=== PATIENT | female | born 1975 | race Caucasian/White ===

== ENCOUNTER 2016-08-29 11:07 | Emergency (ER) | payer OTHER ==
[~2016-08-29] VITALS: Ht 167.6 cm; Wt 70.0 kg
[~2016-08-29 11:07] MED LIST: CYCL-36 PO; NAPR-576 PO
[2016-08-29 11:08] VITALS: BP 117/70; PULSE 78; RESP 19; TEMP 98.2; O2SAT 98
[2016-08-29] MEDS ORDERED: SODIUM CHLOR 0.9% 1000 ML INJ 1,000 ML IV ONE (11:18)
--- NOTE | 2016-08-29 11:25 | PD ---
HPI Chief Complaint: Cold / Flu Symptoms Time Seen by Provider: 11:15 Travel History International Travel<30 days: No Contact w/Intl Traveler<30days: No Traveled to known affect area: No History of Present Illness HPI 40-year-old female with half a pack a day smoking history presents for evaluation of cough, congestion. Symptoms started 3 days ago. The cough is occasionally productive with yellow sputum. The cough is worse at night. She endorses some dizziness, particularly when she coughs. She describes this as a lightheadedness sensation. She has tried several [id number] cough and cold medications with no symptom relief which prompted evaluation. She does note that her son who has a history of asthma was seen here 5 days ago with similar symptoms, diagnosed with bronchitis. She denies any recent travel, abdominal pain, nausea or vomiting, dysuria, flank pain, headache, blurred vision. She has no other complaints at this time. PFS Past Medical History Narrative Medical History of chronic back pain with spinal stimulator implant. ?: Not LMP: 08/11/16 Social History Tobacco Use: Yes Allergies-Medications (Allergen,Severity, Reaction): Coded Allergies: No Known Allergies (Unverified , 08/29/16) Reported Meds & Prescriptions Reported Meds & Active Scripts Active Prednisone 20 Mg Tab 20 Mg PO BID 5 Days Ventolin Hfa 18 GM Inh (Albuterol Sulfate) 90 Mcg/Act Aer 2 Puff INH Q4-6H PRN Tuzistra Xr Liq 12 HR (Codeine-Chlorpheniramine ER Liq 12 HR) 14.7-2.8 Mg/5 Ml Susp 10 Ml PO Q12H 5 Days Naproxen 500 Mg Tab 500 Mg PO Q12HR 10 Days Flexeril (Cyclobenzaprine HCl) 10 Mg Tab 10 Mg PO Q8HR PRN Review of Systems Except as stated in HPI: all other systems reviewed are Neg Physical Exam Narrative GENERAL: This is a well-developed well-nourished female who is coughing during much of the examination. Her vital signs have been reviewed. SKIN: Warm and dry. HEAD: Atraumatic. Normocephalic. EYES: Pupils equal and round. No scleral icterus. No injection or drainage. ENT: No nasal bleeding or discharge. Mucous membranes pink and moist. NECK: Trachea midline. No JVD. No lymphadenopathy. Neck supple full range of motion. CARDIOVASCULAR: Regular rate and rhythm. No murmur appreciated. RESPIRATORY: No accessory muscle use. Mildly coarse breath sounds bilaterally. GASTROINTESTINAL: Abdomen soft, non-tender, nondistended. Hepatic and splenic margins not palpable. MUSCULOSKELETAL: No obvious deformities. No edema. NEUROLOGICAL: Awake and alert. No obvious cranial nerve deficits. Motor grossly within normal limits. Normal speech. Normal finger to nose. Data Data Last Documented VS Vital Signs Date Time Temp Pulse Resp B/P Pulse Ox O2 Delivery O2 Flow Rate FiO2 08/29/16 11:08 98.2 78 19 117/70 98 Orders Electrocardiogram (08/29/16 11:18) Basic Metabolic Panel (Bmp) (08/29/16 11:18) Ed Urine Pregnancytest Poc (08/29/16 11:18) Complete Blood Count With Diff (08/29/16 11:18) Magnesium (Mg) (08/29/16 11:18) Chest, Pa & Lat (08/29/16 11:18) Sodium Chlor 0.9% 1000 Ml Inj (Ns 1000 M (08/29/16 11:18) Influenzae A/B Antigen (08/29/16 11:18) Albuterol-Ipratropium Neb (Duoneb Neb) (08/29/16 11:30) Methylprednisolone So Succ Inj (Solumedr (08/29/16 11:30) Benzonatate (Tessalon) (08/29/16 11:30) Labs Laboratory Tests Test 08/29/16 11:40 White Blood Count 7.8 TH/MM3 Red Blood Count 4.46 MIL/MM3 Hemoglobin 14.3 GM/DL Hematocrit 41.3 % Mean Corpuscular Volume 92.7 FL Mean Corpuscular Hemoglobin 32.0 PG Mean Corpuscular Hemoglobin 34.6 % Concent Red Cell Distribution Width 13.5 % Platelet Count 211 TH/MM3 Mean Platelet Volume 8.4 FL Neutrophils (%) (Auto) 69.3 % Lymphocytes (%) (Auto) 19.9 % Monocytes (%) (Auto) 8.2 % Eosinophils (%) (Auto) 2.1 % Basophils (%) (Auto) 0.5 % Neutrophils # (Auto) 5.4 TH/MM3 Lymphocytes # (Auto) 1.5 TH/MM3 Monocytes # (Auto) 0.6 TH/MM3 Eosinophils # (Auto) 0.2 TH/MM3 Basophils # (Auto) 0.0 TH/MM3 CBC Comment DIFF FINAL Differential Comment Sodium Level 140 MEQ/L Potassium Level 3.9 MEQ/L Chloride Level 108 MEQ/L Carbon Dioxide Level 24.7 MEQ/L Anion Gap 7 MEQ/L Blood Urea Nitrogen 9 MG/DL Creatinine 0.70 MG/DL Estimat Glomerular Filtration 93 ML/MIN Rate Random Glucose 82 MG/DL Calcium Level 8.8 MG/DL Magnesium Level 2.1 MG/DL MDM Medical Decision Making Medical Screen Exam Complete: Yes Emergency Medical Condition: Yes Medical Record Reviewed: Yes Interpretation(s) EKG NSR CBC, BMP unremarkable Chest x-ray normal Differential Diagnosis Bronchitis, reactive airway disease, pneumonia, influenza, COPD, sinusitis with postnasal drip Narrative Course 40-year-old female smoker with 3 days of cough, worse in the night. Her son is had similar symptoms for 5 days. She does have some dizziness associated with the coughing. On examination she has coarse breath sounds. She has a grossly nonfocal neurologic examination. Plan is for basic lab, EKG, chest x-ray. She will be given DuoNeb, Solu-Medrol, Tessalon here for symptom treatment. The patient's laboratory imaging studies have been reviewed and found to be unremarkable. The patient feels improved after medication administration. She' ll be discharged with a short course of codeine-based cough suppressant medication as well as an albuterol inhaler and a short course of prednisone. Procedures EKG Prior to Arrival: Yes Diagnosis Primary Impression: Bronchitis Additional Instructions: Medication as prescribed. Consider tobacco cessation. Follow-up with primary care physician as needed. Return for any acutely no worsening symptoms. Med/Other Pt SpecificInfo: Prescription(s) given Scripts Prednisone 20 Mg Tab20 Mg PO BID 5 Days Ref 0 Prov:Darling Baron MD 08/29/16 Albuterol 18 GM Inh (Ventolin Hfa 18 GM Inh)90 Mcg/Act Aer2 Puff INH Q4-6H PRN ( SHORTNESS OF BREATH) #1 INHALER Ref 0 Prov:Darling Baron MD 08/29/16 Codeine-Chlorpheniramine ER Liq 12 HR (Tuzistra Xr Liq 12 HR)14.7-2.8 Mg/5 Ml Susp10 Ml PO Q12H 5 Days Ref 0 Prov:Darling Baron MD 08/29/16 Disposition: 01 DISCHARGE HOME Condition: Stable Kenneth Mullen August 29, 2016 11:25
[2016-08-29] MEDS ORDERED: BENZONATATE 100 MG CAP PO ONE (11:30)
[2016-08-29] MEDS ORDERED: methylPREDNISolone SOD SUCC 125 MG/2 ML VIAL IV PUSH ONE (11:30)
[2016-08-29] MEDS ORDERED: RESP: ALBUTEROL 2.5 MG/IPRATROPIUM 0.5 MG NEB (SCH) INH ONE (11:30)
[2016-08-29 11:55] LABS: AUTOMATED NEUTROPHIL # 5.4 TH/MM3 (1.8-7.7); BASOPHIL % 0.5 % (0.0-2.0); EOSINOPHIL # 0.2 TH/MM3 (0-0.4); EOSINOPHIL % 2.1 % (0.0-4.0); HEMATOCRIT 41.3 % (35.0-46.0); HEMO FLAGS DIFF FINAL; LYMPH % 19.9 % (9.0-44.0); LYMPHOCYTE # 1.5 TH/MM3 (1.0-4.8); MEAN CELL VOLUME 92.7 FL (80.0-100.0); MEAN CORPUSCULAR HGB CONC 34.6 % (32.0-36.0); MONO % 8.2 % (0.0-8.0); NEUT % 69.3 % (16.0-70.0); PLATELET COUNT 211 TH/MM3 (150-450); RED BLOOD COUNT 4.46 MIL/MM3 (4.00-5.30); RED CELL DISTRIBUTION WIDTH 13.5 % (11.6-17.2); WHITE BLOOD COUNT 7.8 TH/MM3 (4.0-11.0)
[2016-08-29] MEDS ORDERED: CODE1SUS PO (12:14)
[2016-08-29 12:15] LABS: BICARBONATE 24.7 MEQ/L (21.0-32.0); MAGNESIUM 2.1 MG/DL (1.5-2.5); POTASSIUM 3.9 MEQ/L (3.5-5.1)
[2016-08-29] MEDS ORDERED: PRED20 PO (12:30)
[2016-08-29] MEDS ORDERED: VENTAER INH (12:30)
--- NOTE | 2016-08-29 13:36 | RADRPT ---
EXAM DATE/TIME: 08/29/2016 12:15 [facility] COMPARISON: No previous studies available for comparison. INDICATIONS : Cough for 3 days. MEDICAL HISTORY : None. SURGICAL HISTORY : Spinal cord stimulator. ENCOUNTER: Initial ACUITY: 3 days PAIN SCORE: 0/10 LOCATION: Bilateral chest FINDINGS: PA and lateral views of the chest demonstrate the lungs to be symmetrically aerated without evidence of mass, infiltrate or effusion. The cardiomediastinal contours are unremarkable. Osseous structure s are intact. Spinal stimulator leads with tips at the T7/T8 level noted. CONCLUSION: No evidence of acute cardiopulmonary disease. Kristian Osorio MD on August 29, 2016 at 13:33 Board Certified Radiologist. This report was verified electronically.
[2016-08-29 14:25] VITALS: BP 134/65
--- NOTE | 2016-08-30 15:48 | EKG ---
Date Performed: 08/29/2016 Time Performed: 11:57:49 PTAGE: 40 years EKG: Sinus rhythm POSSIBLE LEFT ATRIAL ENLARGEMENT POSSIBLE RIGHT VENTRICULAR CONDUCTION DELAY BORDERLINE ECG NO PREVIOUS TRACING DOCTOR: Torsten Moay Interpretating Date/Time 08/30/2016 15:40:13
== END 2016-08-29 14:33 | disposition home or self-care (01) ==
LOC: NEPD 11:07
DX: J40 Bronchitis, not specified as acute or chronic (principal); F17.210 Nicotine dependence, cigarettes, uncomplicated; R94.31 Abnormal electrocardiogram [ECG] [EKG]
CPT/HCPCS: 71020; 80048; 83735; 84703; 85025; 87804; 93005; 94664; 96374; 99284; J2930; J7030

== ENCOUNTER 2017-05-27 14:39 | Emergency (ER) | payer OTHER ==
[~2017-05-27] VITALS: Ht 167.6 cm; Wt 78.0 kg
[~2017-05-27 14:39] MED LIST changes: +CODE1SUS PO; +PRED20 PO; +VENTAER INH
[2017-05-27 14:58] VITALS: BP 122/65; PULSE 65; RESP 19; TEMP 97.8; O2SAT 94
--- NOTE | 2017-05-27 14:58 | PD ---
HPI Chief Complaint: Fall Time Seen by Provider: 14:53 Travel History International Travel<30 days: No Contact w/Intl Traveler<30days: No Traveled to known affect area: No History of Present Illness HPI 41-year-old female complains of neck pain upper and low back pain. Patient fell on her back on the stairs this afternoon. Patient denies loss of consciousness. Patient denies any headache. Patient, and sharp pain localized to neck upper back and low back area. Patient denies any chest pain or shortness of breath. Patient denies abdominal pain. Patient complained of right upper back pain also. Patient denies any focal weakness or numbness of extremity. Patient status post low back injury in the past. PFSH Past Medical History ?: Not LMP: 05/18/2017 Social History Alcohol Use: Yes Tobacco Use: Yes Allergies-Medications (Allergen,Severity, Reaction): Coded Allergies: No Known Allergies (Unverified Adverse Reaction, Unknown, 05/27/17) Reported Meds & Prescriptions Reported Meds & Active Scripts Active No Active Prescriptions or Reported Medications Review of Systems General / Constitutional: No: Fever Eyes: No: Visual changes HENT: No: Headaches Cardiovascular: No: Chest Pain or Discomfort Respiratory: No: Shortness of Breath Gastrointestinal: No: Abdominal Pain Genitourinary: No: Dysuria Musculoskeletal: No: Pain Skin: No Rash Neurologic: No: Weakness Psychiatric: No: Depression Endocrine: No: Polydipsia Hematologic/Lymphatic: No: Easy Bruising Physical Exam Narrative GENERAL: Well-nourished, well-developed patient. SKIN: Focused skin assessment warm/dry. HEAD: Normocephalic. EYES: No scleral icterus. No injection or drainage. NECK: Supple, trachea midline. No JVD or lymphadenopathy. C-collar in place. Patient has ordered tenderness on palpation paraspinal areas cervical spine. No midline tenderness. CARDIOVASCULAR: Regular rate and rhythm without murmurs, gallops, or rubs. RESPIRATORY: Breath sounds equal bilaterally. No accessory muscle use. GASTROINTESTINAL: Abdomen soft, non-tender, nondistended. MUSCULOSKELETAL: No cyanosis, or edema. BACK: Patient has mild tenderness on palpation thoracic spine moderate tenderness on palpation lumbar spine area, without obvious deformity. No CVA tenderness. Negative straight leg raising. Neurologic exam normal. Data Data Last Documented VS Vital Signs Date Time Temp Pulse Resp B/P (MAP) Pulse Ox O2 Delivery O2 Flow Rate FiO2 05/27/17 14:58 97.8 65 19 122/65 (84) 94 Room Air Orders Orders Chest, Single Ap (05/27/17 14:54) Pelvis, Ap Only (Routine) (05/27/17 14:54) Ct Cerv Spine W/O Contrast (05/27/17 14:54) Ct Thor Spine W/O Contrast (05/27/17 14:54) Ct Lumb Spine W/O Contrast (05/27/17 14:54) Acetamin-Hydrocod 325-5 Mg ([place] 5-325 (05/27/17 16:30) MDM Medical Decision Making Medical Screen Exam Complete: Yes Emergency Medical Condition: Yes Interpretation(s) Last Impressions Lumbar Spine CT 05/27/171453 Signed Impressions: Service Date/Time: Saturday, May 27, 2017 15:29 - CONCLUSION: Negative examination Brian Rose MD Chest X-Ray 05/27/[id number] Signed Impressions: Service Date/Time: Saturday, May 27, 2017 15:39 - CONCLUSION: No acute disease. Brian Rose MD Cervical Spine CT 05/27/[id number] Signed Impressions: Service Date/Time: Saturday, May 27, 2017 15:29 - CONCLUSION: 1. No compression fracture or spondylolisthesis. 2. Protrusions at C5-6 and C6-7 levels as described above. Peter Welch MD Differential Diagnosis Differential diagnosis including contusion, fracture, dislocation. Narrative Course 41-year-old female with neck, back, injury. Status post fall. Diagnosis Primary Impression: Back contusion Qualified Codes: S20.229A - Contusion of unspecified back wall of thorax, initial encounter Additional Impression: Cervical strain Qualified Codes: S16.1XXA - Strain of muscle, fascia and tendon at neck level , initial encounter Patient Instructions: General Instructions Med/Other Pt SpecificInfo: Prescription(s) given Scripts Methocarbamol (Robaxin) 750 Mg Tab 750 MG PO QID for Muscle Spasm, #40 TAB 0 Refills Prov: Leonard Mccarthy MD 05/27/17 Meloxicam (Mobic) 15 Mg Tab 15 MG PO DAILY for Pain, #20 TAB 0 Refills Prov: Leonard Mccarthy MD 05/27/17 Disposition: 01 DISCHARGE HOME Condition: Stable Fabio,Hung MD May 27, 2017 14:58
--- NOTE | 2017-05-27 15:49 | RADRPT ---
EXAM DATE/TIME: 05/27/2017 15:29 [facility] COMPARISON: No previous studies available for comparison. INDICATIONS : Neck pain due to fall. RADIATION DOSE: 27.42 CTDIvol (mGy) MEDICAL HISTORY : None SURGICAL HISTORY : Tubal ligation. Spinal cord stimulator. ENCOUNTER: Initial ACUITY: 1 day PAIN SCALE: 10/10 LOCATION: Right neck region. TECHNIQUE: Volumetric scanning of the cervical spine was performed. Multiplanar reconstructions in the sagittal, coronal and oblique axial planes were performed. Using automated exposure control and adjustment o f the mA and/or kV according to patient size, radiation dose was kept as low as reasonably achievable to obtain optimal diagnostic quality images. DICOM format image data is available electronically f or review and comparison. FINDINGS: VERTEBRAE: Normal vertebral body height. Degenerative changes at C5-6 and C6-7 levels. ALIGNMENT: No evidence of subluxation. C2-C3: The bony spinal canal is normal in size. No evidence of disc bulge or herniation. The neural forami na are bilaterally patent. C3-C4: The bony spinal canal is normal in size. No evidence of disc bulge or herniation. The neural forami na are bilaterally patent. C4-C5: The bony spinal canal is normal in size. No evidence of disc bulge or herniation. The neural forami na are bilaterally patent. C5-C6: Moderate right-sided protrusion abuts the ventral thecal sac. Mild canal stenosis. Severe narrowing t he right neural foramen. Left neural foramen is patent. C6-C7: Mild broad-based protrusion abuts ventral thecal sac. No canal stenosis. Mild to moderate bilateral n eural foraminal narrowing. C7-T1: The bony spinal canal is normal in size. No evidence of disc bulge or herniation. The neural forami na are bilaterally patent. CONCLUSION: 1. No compression fracture or spondylolisthesis. 2. Protrusions at C5-6 and C6-7 levels as described above. Peter Welch MD on May 27, 2017 at 15:43 Board Certified Radiologist. This report was verified electronically.
--- NOTE | 2017-05-27 15:57 | RADRPT ---
EXAM DATE/TIME: 05/27/2017 15:39 [facility] COMPARISON: CT THORACIC SPINE W/O CONTRAST, May 27, 2017, 15:33. INDICATIONS : Fall, pain in chest. MEDICAL HISTORY : None. SURGICAL HISTORY : None. ENCOUNTER: Initial ACUITY: 1 day PAIN SCORE: 5/10 LOCATION: Bilateral chest FINDINGS: A single view of the chest demonstrates the lungs to be symmetrically aerated without evidence of mas s, infiltrate or effusion. The cardiomediastinal contours are unremarkable. Osseous structures are intact. Lower thoracic spine intracanicular wires and/or stimulating device is noted in place. CONCLUSION: No acute disease. Brian Rose MD on May 27, 2017 at 15:53 Board Certified Radiologist. This report was verified electronically.
--- NOTE | 2017-05-27 16:09 | RADRPT ---
EXAM DATE/TIME: 05/27/2017 15:29 [facility] COMPARISON: No previous studies available for comparison. INDICATIONS : Low back pain due to fall. RADIATION DOSE: 25.13 CTDIvol (mGy) ; Combined studies - Thoracic Spine/Lumbar Spine MEDICAL HISTORY : None SURGICAL HISTORY : Tubal ligation. Spinal cord stimulator. ENCOUNTER: Initial ACUITY: 1 day PAIN SCALE: 10/10 LOCATION: Right low back region. TECHNIQUE: Volumetric scanning of the lumbar spine was performed. Multiplanar reconstructions in the sagittal, coronal and oblique axial planes were performed. Using automated exposure control and adjustment of the mA and/or kV according to patient size, radiation dose was kept as low as reasonab ly achievable to obtain optimal diagnostic quality images. DICOM format image data is available francesco ctronically for review and comparison. FINDINGS: VERTEBRAE: Normal vertebral body height. ALIGNMENT: No evidence of subluxation. T12-L1: The thecal sac has a normal diameter. No evidence of disc bulge or protrusion. The neural foramina are patent bilaterally. L1-L2: The thecal sac has a normal diameter. No evidence of disc bulge or protrusion. The neural foramina are patent bilaterally. L2-L3: The thecal sac has a normal diameter. No evidence of disc bulge or protrusion. The neural foramina are patent bilaterally. L3-L4: The thecal sac has a normal diameter. No evidence of disc bulge or protrusion. The neural foramina are patent bilaterally. L4-L5: The thecal sac has a normal diameter. No evidence of disc bulge or protrusion. The neural foramina are patent bilaterally. L5-S1: The thecal sac has a normal diameter. No evidence of disc bulge or protrusion. The neural foramina are patent bilaterally. CONCLUSION: Negative examination Brian Rose MD on May 27, 2017 at 16:01 Board Certified Radiologist. This report was verified electronically.
--- NOTE | 2017-05-27 16:17 | RADRPT ---
EXAM DATE/TIME: 05/27/2017 15:33 [facility] COMPARISON: No previous studies available for comparison. INDICATIONS : Mid back pain due to fall. RADIATION DOSE: 25.13 CTDIvol (mGy) ; Combined studies - Thoracic Spine/Lumbar Spine MEDICAL HISTORY : None SURGICAL HISTORY : Tubal ligation. Spinal cord stimulator. ENCOUNTER: Initial ACUITY: 1 day PAIN SCALE: 10/10 LOCATION: Right mid back region. TECHNIQUE: Volumetric scanning of the thoracic spine was performed. Multiplanar reconstructions in the sagittal , coronal and oblique axial planes were performed. Using automated exposure control and adjustment o f the mA and/or kV according to patient size, radiation dose was kept as low as reasonably achievable to obtain optimal diagnostic quality images. DICOM format image data is available electronically f or review and comparison. FINDINGS: The vertebral bodies of the thoracic spine are in normal alignment without evidence of subluxation. Vertebral body height is maintained. No fractures are seen. Intracanicular wires and 2 at T9-10 post eriorly and a stent with the metallic markers posteriorly within the canal at the level of T7-T9. T1-T2: Normal. T2-T3: The thecal sac has a normal diameter. No evidence of disc bulge or protrusion. T3-T4: The thecal sac has a normal diameter. No evidence of disc bulge or protrusion. T4-T5: The thecal sac has a normal diameter. No evidence of disc bulge or protrusion. T5-T6: The thecal sac has a normal diameter. No evidence of disc bulge or protrusion. T6-T7: The thecal sac has a normal diameter. No evidence of disc bulge or protrusion. T7-T8: The thecal sac has a normal diameter. No evidence of disc bulge or protrusion. T8-T9: The thecal sac has a normal diameter. No evidence of disc bulge or protrusion. T9-T10: The thecal sac has a normal diameter. No evidence of disc bulge or protrusion. T10-T11: The thecal sac has a normal diameter. No evidence of disc bulge or protrusion. T11-T12: The thecal sac has a normal diameter. No evidence of disc bulge or protrusion. T12-L1: The thecal sac has a normal diameter. No evidence of disc bulge or protrusion. CONCLUSION: No acute bony abnormality. Intracanicular wires and stimulating device as descr ibed above Brian Rose MD on May 27, 2017 at 16:09 Board Certified Radiologist. This report was verified electronically.
[2017-05-27] MEDS ORDERED: ROBA750T PO (16:23)
[2017-05-27] MEDS ORDERED: MOBI15TA PO (16:23)
--- NOTE | 2017-05-27 16:27 | RADRPT ---
EXAM DATE/TIME: 05/27/2017 15:41 [facility] COMPARISON: CT LUMBAR SPINE W/O CONTRAST, May 27, 2017, 15:29. INDICATIONS : Fall pain in pelvis bilaterally. MEDICAL HISTORY : None. SURGICAL HISTORY : Spinal cord stimulator. ENCOUNTER: Subsequent ACUITY: 1 day PAIN SCORE: 7/10 LOCATION: Bilateral pelvis FINDINGS: There is a symmetrical prominence of the issue him of the inferior pubic rami bilaterally which may b e normal growth pattern however fractures overlapping cannot be excluded. Additionally there is a off set of the cortex of the junction of the left superior pubic ramus with the acetabulum of indetermina te age. Clinical correlation recommended. Further evaluation with plain film radiograph oblique views or CT scan to be warranted CONCLUSION: Abnormalities described above indeterminate age and significance. Asymmetry in addition bilateral inf erior pubic rami which could represent symmetrical overlapping fractures. Additionally there is defor mity junction left superior pubic ramus with the acetabulum of indeterminate age. Further evaluation recommended with either plain film radiographically or CT scan Brian Rose MD on May 27, 2017 at 16:22 Board Certified Radiologist. This report was verified electronically.
[2017-05-27] MEDS ORDERED: ACETAMINOPHEN/HYDROcodone 325 MG/5 MG TAB PO ONE (16:30)
== END 2017-05-27 16:57 | disposition home or self-care (01) ==
LOC: NEPD 14:39
DX: S20.229A Contusion of unspecified back wall of thorax, initial encounter (principal); S16.1XXA Strain of muscle, fascia and tendon at neck level, initial encounter; W10.9XXA Fall (on) (from) unspecified stairs and steps, initial encounter; Z72.0 Tobacco use
CPT/HCPCS: 71045; 72125; 72128; 72131; 72170

== ENCOUNTER 2017-07-21 13:07 | Emergency (ER) | payer OTHER ==
[~2017-07-21 13:07] MED LIST changes: -CODE1SUS PO; -CYCL-36 PO; +MOBI15TA PO; -NAPR-576 PO; -PRED20 PO; +ROBA750T PO; -VENTAER INH
[2017-07-21 13:20] VITALS: BP 121/69; PULSE 75; RESP 18; TEMP 98.3; O2SAT 98
[2017-07-21] MEDS ORDERED: MORPHINE SULFATE 4 MG/ML INJ IM ONE (14:15)
[2017-07-21] MEDS ORDERED: ORPHENADRINE INJ 60 MG/2 ML AMP IM ONE (14:15)
--- NOTE | 2017-07-21 14:22 | PD ---
HPI Chief Complaint: Back/ Neck Pain or Injury Time Seen by Provider: 13:46 Travel History International Travel<30 days: No Contact w/Intl Traveler<30days: No Traveled to known affect area: No History of Present Illness HPI 41-year-old female with history of chronic low back pain presents to the emergency room for evaluation of the same. Patient states she has constant, chronic low back pain after falling 40 feet 10 years ago. She had a stimulator placed several years ago but it has not been functioning for a few years. She was seeing a primary care physician and given a referral to a pain management doctor but the referral never went through because the primary care physician was taken off of her insurance plan. Patient states she can typically manage her pain with rest, using wheelchair or walker, and taking [id number] medications. This morning her right leg gave out while walking and she had to catch herself on a chair. The twisting motion exacerbated her pain. Pain is localized to the low back with radiation down the leg. Worse with certain range of motion or sitting for a long period of time. Nothing improves symptoms. Patient denies history of IV drug use. Denies saddle anesthesia, loss of bowel or bladder control, lower extremity paresthesias. 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 PFSH Past Medical History Musculoskeletal: Yes (spinal injury) Tetanus Vaccination: < 5 Years ?: Not Tubal Ligation: Yes Past Surgical History Body Medical Devices: spinal cord stimulator, medtr[employer] Other Surgery: Yes (pain stimulator ) Social History Alcohol Use: Yes (rarely) Tobacco Use: Yes (1/2 ppd) Substance Use: No Allergies-Medications (Allergen,Severity, Reaction): Coded Allergies: No Known Allergies (Unverified Adverse Reaction, Unknown, 07/21/17) Reported Meds & Prescriptions Reported Meds & Active Scripts Active Review of Systems Except as stated in HPI: all other systems reviewed are Neg Physical Exam Narrative GENERAL: Well-nourished, well-developed female no acute distress. Afebrile. Ambulatory. SKIN: Focused skin assessment warm/dry. HEAD: Normocephalic. EYES: No scleral icterus. No injection or drainage. NECK: Supple, trachea midline. No JVD or lymphadenopathy. CARDIOVASCULAR: Regular rate and rhythm without murmurs, gallops, or rubs. RESPIRATORY: Breath sounds equal bilaterally. No accessory muscle use. BACK: No obvious deformity. No CVA tenderness. 2+ patellar reflexes bilaterally and right Achilles reflex. 1+ Achilles reflexes on the left. Extreme tenderness to palpation of very light palpation of the low back. Positive straight leg raise bilaterally. Data Data Last Documented VS Vital Signs Date Time Temp Pulse Resp B/P (MAP) Pulse Ox O2 Delivery O2 Flow Rate FiO2 07/21/17 13:20 98.3 75 18 121/69 (86) 98 Orders Orders Morphine Inj (Morphine Inj) (07/21/17 14:15) Orphenadrine Inj (Norflex Inj) (07/21/17 14:15) [facility] Medical Decision Making Medical Screen Exam Complete: Yes Emergency Medical Condition: Yes Medical Record Reviewed: Yes Differential Diagnosis Chronic pain, acute exacerbation of chronic pain, muscle spasm, degenerative disc disease Narrative Course 41-year-old female with chronic low back pain presents to the emergency room for evaluation of the same. Patient states pain has been constant but was worsened this morning when her right leg gave out and she had to catch herself. She did not actually fall to the ground. She has no focal neurological deficits. She is ambulatory and transfers easily in the ED. Patient appears slightly histrionic, she gasps to very light palpation of the lower lumbar region. She reports chronic nerve damage on the left side which is evident through her 1+ Achilles reflex which is slightly decreased as compared to right. Patient has straight leg raise bilaterally. She was seen for similar complaint less than 2 months ago and had CT of the cervical, thoracic, and lumbar spine that were essentially negative. Pelvis x-rays showed changes which are consistent with patient's multiple fractures after falling 40 feet 10 years ago. Given no significant injury today, I do do not see an indication to repeat imaging. Patient was given morphine and Norflex in the emergency room. She will be discharged with prescription for prednisone and Robaxin. Told to follow-up with a primary care physician for outpatient management of chronic pain or return for worsening symptoms. She understands and agrees to plan. Diagnosis Primary Impression: Acute exacerbation of chronic low back pain Referrals: Primary Care Physician Additional Instructions: Rest and drink plenty of fluids. Take Robaxin as directed, as needed for pain. Take prednisone as directed, until gone. Apply ice to the affected area for 20 minutes at a time, as needed for pain and swelling. Follow-up with a primary care physician. Return to the emergency room for worsening symptoms. Scripts No Active Prescriptions or Reported Meds Disposition: 01 DISCHARGE HOME Condition: Stable Maia Hastings Jul 21, 2017 14:22
[2017-07-21] MEDS ORDERED: ROBA750T PO (14:24)
[2017-07-21] MEDS ORDERED: MEDR4PAK PO ×2 (14:24→14:26)
== END 2017-07-21 15:25 | disposition home or self-care (01) ==
LOC: NEDAMB 13:07 → NEPK 15:25
DX: M54.5 Low back pain (principal); G89.29 Other chronic pain; F17.200 Nicotine dependence, unspecified, uncomplicated
CPT/HCPCS: 96372; 99284; J2270; J2360